=== PATIENT | male | born 1970 | race Caucasian/White ===

== ENCOUNTER 2024-10-05 15:55 | Emergency (ER) | payer OTHER ==
[2024-10-05 16:00] VITALS: BP 178/102; PULSE 84; RESP 18; TEMP 97.5; BMI 28.0
== END 2024-10-05 17:58 | disposition home or self-care (01) ==
LOC: FER 15:55
DX: S90.812A Abrasion, left foot, initial encounter (principal); W01.0XXA Fall on same level from slipping, tripping and stumbling without subsequent striking against object, initial encounter
CPT/HCPCS: 73610-TC-LT-FY; 73630-TC-LT; 99283-25